=== PATIENT | male | born 1975 | race Caucasian/White ===

== ENCOUNTER 2018-05-09 09:15 | Emergency (ER) | payer OTHER ==
[~2018-05-09] VITALS: Ht 177.8 cm; Wt 81.6 kg
[2018-05-09] MEDS ORDERED: IV NORMAL SALINE 1000ML BAG 1,000 ML IV SCH (09:19)
--- NOTE | 2018-05-09 09:34 | PHYS DOC ---
Adult General HPI HPI Patient is a 43 year old male who presents with alcohol intoxication. Patient was brought in by EMS after patient was found outside of a sobriety house with intoxication. Patient does have a a card. Patient is alert and responds to pain in his name and follows some verbal direction from staff. Review of Systems Review of Systems Constitutional: Denies fever or chills [] Eyes: Denies change in visual acuity, redness, or eye pain [] HENT: Denies nasal congestion or sore throat [] Respiratory: Denies cough or shortness of breath [] Cardiovascular: No additional information not addressed in HPI [] GI: Denies abdominal pain, nausea, vomiting, bloody stools or diarrhea [] : Denies dysuria or hematuria [] Musculoskeletal: Denies back pain or joint pain [] Integument: Denies rash or skin lesions [] Neurologic: Denies headache, focal weakness or sensory changes. Alcohol Intoxication, AMS [] All other systems were reviewed and found to be within normal limits, except as documented in this note. Current Medications Current Medications Current Medications Medications (Trade) Dose Ordered Sig/Tamera Start Time Stop Time Status Last Admin Dose Admin Sodium Chloride 1,000 ml @ 1,000 mls/hr Q1H 05/09/18 09:19 05/09/18 10:18 DC 05/09/18 09:56 1,000 MLS/HR Allergies Allergies Allergies Coded Allergies Type Severity Reaction Last Updated Verified Unable to Assess 05/09/18 No Physical Exam Physical Exam Constitutional: Well developed, well nourished, no acute distress, non-toxic appearance. [] HENT: Normocephalic, atraumatic, bilateral external ears normal, oropharynx moist, no oral exudates, nose normal. [] Eyes: PERRLA, EOMI, conjunctiva normal, no discharge. [] Neck: Normal range of motion, no tenderness, supple, no stridor. [] Cardiovascular:Heart rate regular rhythm, no murmur [] Lungs & Thorax: Bilateral breath sounds clear to auscultation [] Abdomen: Bowel sounds normal, soft, no tenderness, no masses, no pulsatile masses. [] Skin: Warm, dry, no erythema, no rash. [] Back: No tenderness, no CVA tenderness. [] Extremities: No tenderness, no cyanosis, no clubbing, ROM intact, no edema. [] Neurologic: Alert and oriented X 1, normal motor function, normal sensory function, no focal deficits noted. [] Psychologic: AMS, mood normal. [] Current Patient Data Vital Signs Vital Signs Date Time Temp Pulse Resp B/P (MAP) Pulse Ox O2 Delivery O2 Flow Rate FiO2 05/09/18 11:18 84 20 124/79 (94) 94 Room Air 05/09/18 09:40 98.9 98.9 Lab Values Laboratory Tests Test 05/09/18 09:25 05/09/18 09:30 05/09/18 13:24 White Blood Count 5.6 x10^3/uL (4.0-11.0) Red Blood Count 5.27 x10^6/uL (4.30-5.70) Hemoglobin 16.0 g/dL (13.0-17.5) Hematocrit 46.5 % (39.0-53.0) Mean Corpuscular Volume 88 fL (79-100) Mean Corpuscular Hemoglobin 30 pg (25-35) Mean Corpuscular Hemoglobin Concent 34 g/dL (31-37) Red Cell Distribution Width 14.1 % (11.5-14.5) Platelet Count 232 x10^3/uL (140-400) Neutrophils (%) (Auto) 48 % (31-73) Lymphocytes (%) (Auto) 43 % (24-48) Monocytes (%) (Auto) 8 % (0-9) Eosinophils (%) (Auto) 1 % (0-3) Basophils (%) (Auto) 0 % (0-3) Neutrophils # (Auto) 2.7 x10^3uL (1.8-7.7) Lymphocytes # (Auto) 2.4 x10^3/uL (1.0-4.8) Monocytes # (Auto) 0.4 x10^3/uL (0.0-1.1) Eosinophils # (Auto) 0.1 x10^3/uL (0.0-0.7) Basophils # (Auto) 0.0 x10^3/uL (0.0-0.2) Sodium Level 141 mmol/L (136-145) Potassium Level 4.0 mmol/L (3.5-5.1) Chloride Level 107 mmol/L (98-107) Carbon Dioxide Level 28 mmol/L (21-32) Anion Gap 6 (6-14) Blood Urea Nitrogen 13 mg/dL (8-26) Creatinine 0.9 mg/dL (0.7-1.3) Estimated GFR (Cockcroft-Gault) 92.1 BUN/Creatinine Ratio 14 (6-20) Glucose Level 121 mg/dL (70-99) H Calcium Level 8.6 mg/dL (8.5-10.1) Magnesium Level 1.8 mg/dL (1.8-2.4) Total Bilirubin 0.2 mg/dL (0.2-1.0) Aspartate Amino Transferase (AST) 62 U/L (15-37) H Alanine Aminotransferase (ALT) 51 U/L (16-63) Alkaline Phosphatase 64 U/L (46-116) Troponin I Quantitative < 0.017 ng/mL (0.000-0.055) Total Protein 6.9 g/dL (6.4-8.2) Albumin 3.9 g/dL (3.4-5.0) Albumin/Globulin Ratio 1.3 (1.0-1.7) Lipase 244 U/L (73-393) Ethyl Alcohol Level 484 mg/dL (0-10) *H 342 mg/dL (0-10) H Urine Collection Type Unknown Urine Color Yellow Urine Clarity Clear Urine pH 6.0 Urine Specific [place] 1.015 Urine Protein Negative mg/dL (NEG-TRACE) Urine Glucose (UA) Negative mg/dL (NEG) Urine Ketones (Stick) Negative mg/dL (NEG) Urine Blood Negative (NEG) Urine Nitrite Negative (NEG) Urine Bilirubin Negative (NEG) Urine Urobilinogen Dipstick 0.2 mg/dL (0.2 mg/dL) Urine Leukocyte Esterase Negative (NEG) Urine RBC 1-2 /HPF (0-2) Urine WBC Occ /HPF (0-4) Urine Squamous Epithelial Cells Few /LPF Urine Bacteria 0 /HPF (0-FEW) Urine Mucus Slight /LPF Urine Opiates Screen Neg (NEG) Urine Methadone Screen Neg (NEG) Urine Barbiturates Neg (NEG) Urine Phencyclidine Screen Neg (NEG) Urine Amphetamine/Methamphetamine Neg (NEG) Urine Benzodiazepines Screen Neg (NEG) Urine Cocaine Screen Neg (NEG) Urine Cannabinoids Screen Neg (NEG) Urine Ethyl Alcohol Pos (NEG) Laboratory Tests 05/09/18 09:25 Laboratory Tests 05/09/18 09:25 EKG EKG Sinus Rhythm, Right Bundle Branch Block, No STEMI Interpretation Time: [address] Pelayo Radiology/Procedures Radiology/Procedures Chest Xray Impressions: [facility] [address] [place] [address] IMAGING REPORT Signed PATIENT: DOMINIQUE RANGEL ACCOUNT: [id number] : 1975 LOCATION: ER AGE: 43 SEX: M EXAM STATUS: PRE ER ORD. PHYSICIAN: ODELL DUNN APRN REASON: AMS, ETOH PROCEDURE: PORTABLE CHEST 1V EXAM: Chest, single view. HISTORY: Altered mental status. COMPARISON: None. FINDINGS: A frontal view of the chest is obtained. There is no infiltrate, pleural effusion or pneumothorax. The heart is normal in size. IMPRESSION: No acute pulmonary finding. Electronically signed by: Debora Blakely MD (05/09/2018 10:24 AM) [facility] DICTATED and SIGNED BY: DEBORA BLAKELY MD DATE: 05/09/18 1024 Course & Med Decision Making Course & Med Decision Making Patient is alert only to himself but is nonverbal. Patient arrived by EMS and was found sitting outside of a sobriety house since 0 last night. Patient is intoxicated and responds to his name, will open his eyes when asked, responds to pain by moaning and states his birthday is [birth year]. When asked where he is he mumbles 24. Patient is not answering questions. Patient has no trauma or deformities to his body. Patient is currently AO x1. Patient does not respond to pain. Patient does have a AA card. Patient does not seem to have any pain. Pupils are equal and reactive. Patient is in no respiratory distress and has not extremity edema. Blood ETOH level is 484. Patient's chest x-ray shows no acute findings. 1100: Patient is becoming more alert and answering yes or no questions. Patient states he is wanting to eat and drink. Patient is given a box lunch. 1200: Patient is asking to leave and keeps trying leave the ED. Patient is still very unsteady on his feet and states he has no one to come get him. Patient has not made any phone calls and will not give us anyone to call for him. Patient IV's are removed. Patient can no leave on his own because he is still very intoxicated which makes him a threat to self. 1245: Nursing staff can not find the patient and security see that the patient is outside in the outpatient parking lot. Security is calling the police to get patient. 1300: Patient found by security and brought back tot he room. 1400: Second alcohol level is 342. Patient is steady on his feet, AO x4, and called himself a Uber to take him back to the sobriety house. Dr Pelayo also evaluated patients orientation ans stated the patient was medically cleared to leave with a Uber. Patient is discharged. Zaheer Disclaimer Zaheer Disclaimer This electronic medical record was generated, in whole or in part, using a voice recognition dictation system. Departure Departure Impression: Primary Impression: Alcohol intoxication Disposition: 01 HOME, SELF-CARE Condition: STABLE Patient Instructions: Alcohol Intoxication, Alcohol Problems, Alcohol Withdrawal Additional Instructions: Follow up with your primary care to continue to receive help with Alcoholism. Problem Qualifiers Primary Impression: Alcohol intoxication Complication of substance-induced condition: uncomplicated Qualified Codes: F10.920 - Alcohol use, unspecified with intoxication, uncomplicated ODELL DUNN CHEMICAL LABORATORY TECHNICIAN May 09, 2018 09:34
[2018-05-09 09:36] LABS: BASO % 0 % (0-3); EOS # 0.1 x10^3/uL (0.0-0.7); EOS % 1 % (0-3); HEMATOCRIT 46.5 % (39.0-53.0); LYMPH # 2.4 x10^3/uL (1.0-4.8); LYMPH % 43 % (24-48); MEAN CORPUSCULAR HEMOGLOBIN 30 pg (25-35); MEAN CORPUSCULAR HGB CONC 34 g/dL (31-37); MEAN CORPUSCULAR VOLUME 88 fL (79-100); MONO # 0.4 x10^3/uL (0.0-1.1); MONO % 8 % (0-9); NEUT # 2.7 x10^3uL (1.8-7.7); NEUT % 48 % (31-73); PLATELET COUNT 232 x10^3/uL (140-400); RED BLOOD COUNT 5.27 x10^6/uL (4.30-5.70); RED CELL DISTRIBUTION WIDTH 14.1 % (11.5-14.5); WHITE BLOOD COUNT 5.6 x10^3/uL (4.0-11.0)
[2018-05-09 09:45] LABS: CALCIUM 8.6 mg/dL (8.5-10.1); CREATININE 0.9 mg/dL (0.7-1.3); GFR 92.1
[2018-05-09 09:50] LABS: BILIRUBIN,URINE NEGATIVE (NEG); CLARITY,URINE CLEAR; COLOR,URINE YELLOW; NITRITE,URINE NEGATIVE (NEG); PROTEIN,URINE NEGATIVE (NEG-TRACE); UROBILINOGEN,URINE 0.2 mg/dL (0.2 mg/dL)
--- NOTE | 2018-05-09 09:50 | EKG ---
[facility] [address] [place] [address] Test Date: 2018-05-09 Test Time: 09:23:15 Pat Name: DOMINIQUE RANGEL Department: Room: Gender: M Home Care Provider: : 1975 Requested By: ODELL DUNN Order Number: [id number] Reading MD: Mello Hadley MD Measurements Intervals [place] Rate: 91 P: 90 NC: 178 QRS: 68 QRSD: 90 T: 45 QT: 322 QTc: 402 Interpretive Statements SINUS RHYTHM Electronically Signed On 05-12-2018 9:07:58 CDT by Mello Hadley MD
[2018-05-09 09:51] LABS: ALBUMIN 3.9 g/dL (3.4-5.0); TOTAL PROTEIN 6.9 g/dL (6.4-8.2)
[2018-05-09 09:52] LABS: BARBITURATES NEG (NEG); BENZODIAZEPINES NEG (NEG); CANNABINOIDS NEG (NEG); COCAINE NEG (NEG); METHADONE NEG (NEG); OPIATES NEG (NEG); PHENCYCLIDINE NEG (NEG)
[2018-05-09 09:52] LABS: ALBUMIN/GLOBULIN RATIO 1.3 (1.0-1.7); MAGNESIUM 1.8 mg/dL (1.8-2.4); TOTAL BILIRUBIN 0.2 mg/dL (0.2-1.0)
[2018-05-09 09:53] LABS: AMPHETAMINE/METHAMPHETAMINE NEG (NEG)
[2018-05-09 10:06] LABS: BACTERIA,URINE 0 /HPF (0-FEW); SQUAMOUS EPITHELIAL CELL,UR FEW /LPF; WBC,URINE OCC /HPF (0-4)
--- NOTE | 2018-05-09 10:28 | RAD ---
EXAM: Chest, single view. HISTORY: Altered mental status. COMPARISON: None. FINDINGS: A frontal view of the chest is obtained. There is no infiltrate, pleural effusion or pneumothorax. The heart is normal in size. IMPRESSION: No acute pulmonary finding. Electronically signed by: Debora Bond MD (05/09/2018 10:24 AM) [facility]
[2018-05-09 11:18] VITALS: BP 124/79
== END 2018-05-09 14:21 | disposition home or self-care (01) ==
LOC: ER 09:15
DX: F10.129 Alcohol abuse with intoxication, unspecified (principal); R41.82 Altered mental status, unspecified
CPT/HCPCS: 36415; 71045; 80053; 80307; 81001; 83690; 83735; 84484; 85025; 93005; 96360; 99285; G0480; J7030; G0479

== ENCOUNTER 2018-05-09 15:55 | Emergency (ER) | payer OTHER ==
[~2018-05-09] VITALS: Ht 180.3 cm; Wt 81.6 kg
[2018-05-09] MEDS ORDERED: IV NORMAL SALINE 1000ML BAG 1,000 ML IV ONE (16:15)
--- NOTE | 2018-05-09 16:20 | PHYS DOC ---
Past Medical History Past Medical History: Unknown Past Surgical History: Other Additional Past Surgical Histo: UNKNOWN Alcohol Use: Heavy Drug Use: None Adult General Chief Complaint Chief Complaint: ALCOHOL INTOXICATION HPI HPI Patient is a 43 year old male who presents with the second time to the ED today with alcohol intoxication. Patient brought in by EMS after being found intoxicated on the side of the rode drinking mouth wash. Patient is again alert to himself and pain only. Patients neurological status is the same as he was when he came in the first time this morning. Review of Systems Review of Systems Constitutional: Denies fever or chills [] Eyes: Denies change in visual acuity, redness, or eye pain [] HENT: Denies nasal congestion or sore throat [] Respiratory: Denies cough or shortness of breath [] Cardiovascular: No additional information not addressed in HPI [] GI: Denies abdominal pain, nausea, vomiting, bloody stools or diarrhea [] : Denies dysuria or hematuria [] Musculoskeletal: Denies back pain or joint pain [] Integument: Denies rash or skin lesions [] Neurologic: Intoxicated and AO to self and pain. Denies headache, focal weakness or sensory changes [] Endocrine: Denies polyuria or polydipsia [] All other systems were reviewed and found to be within normal limits, except as documented in this note. Current Medications Current Medications Current Medications Medications (Trade) Dose Ordered Sig/Tamera Start Time Stop Time Status Last Admin Dose Admin Sodium Chloride 1,000 ml @ 1,000 mls/hr 1X ONCE 05/09/18 16:15 05/09/18 17:14 DC 05/09/18 16:42 1,000 MLS/HR Allergies Allergies Allergies Coded Allergies Type Severity Reaction Last Updated Verified Unable to Assess 05/09/18 No Physical Exam Physical Exam Constitutional: Well developed, well nourished, no acute distress, non-toxic appearance. [] HENT: Normocephalic, atraumatic, bilateral external ears normal, oropharynx moist, no oral exudates, nose normal. [] Eyes: PERRLA, EOMI, conjunctiva normal, no discharge. [] Neck: Normal range of motion, no tenderness, supple, no stridor. [] Cardiovascular:Heart rate regular rhythm, no murmur [] Lungs & Thorax: Bilateral breath sounds clear to auscultation [] Abdomen: Bowel sounds normal, soft, no tenderness, no masses, no pulsatile masses. [] Skin: Warm, dry, no erythema, no rash. [] Back: No tenderness, no CVA tenderness. [] Extremities: No tenderness, no cyanosis, no clubbing, ROM intact, no edema. [] Neurologic: Alert and oriented X 1, normal motor function, normal sensory function, no focal deficits noted. [] Psychologic: Affect alcohol intoxication, judgement not normal, mood normal. [] Current Patient Data Vital Signs Vital Signs Date Time Temp Pulse Resp B/P (MAP) Pulse Ox O2 Delivery O2 Flow Rate FiO2 05/09/18 18:00 90 16 134/74 (94) 97 05/09/18 16:03 98.6 Room Air 98.6 Lab Values Laboratory Tests Test 05/09/18 16:22 05/09/18 17:00 Sodium Level 141 mmol/L (136-145) Potassium Level 3.6 mmol/L (3.5-5.1) Chloride Level 106 mmol/L (98-107) Carbon Dioxide Level 27 mmol/L (21-32) Anion Gap 8 (6-14) Blood Urea Nitrogen 10 mg/dL (8-26) Creatinine 0.9 mg/dL (0.7-1.3) Estimated GFR (Cockcroft-Gault) 92.1 BUN/Creatinine Ratio 11 (6-20) Glucose Level 158 mg/dL (70-99) H Calcium Level 8.1 mg/dL (8.5-10.1) L Total Bilirubin 0.1 mg/dL (0.2-1.0) L Aspartate Amino Transferase (AST) 40 U/L (15-37) H Alanine Aminotransferase (ALT) 48 U/L (16-63) Alkaline Phosphatase 61 U/L (46-116) Total Protein 6.6 g/dL (6.4-8.2) Albumin 3.7 g/dL (3.4-5.0) Albumin/Globulin Ratio 1.3 (1.0-1.7) Ethyl Alcohol Level 442 mg/dL (0-10) *H Urine Opiates Screen Neg (NEG) Urine Methadone Screen Neg (NEG) Urine Barbiturates Neg (NEG) Urine Phencyclidine Screen Neg (NEG) Urine Amphetamine/Methamphetamine Neg (NEG) Urine Benzodiazepines Screen Neg (NEG) Urine Cocaine Screen Neg (NEG) Urine Cannabinoids Screen Neg (NEG) Urine Ethyl Alcohol Pos (NEG) Laboratory Tests 05/09/18 16:22 EKG EKG Sinus Rhythm, Incomplete Right Bundle Branch Block, No STEMI[] Interpretation Time: [address] Pelayo Radiology/Procedures Radiology/Procedures [] Course & Med Decision Making Course & Med Decision Making Patient is alert to self and pain. Poison control is being called because patient drank mouth wash. Patient will have lab work, urine drug screen, alcohol level, and EKG completed. Patient will also receive a bolus of normal saline. Poison control is called and they states to treat this patient just like a regular alcohol intoxication patient. I have handed this patient off to Juanita ROSAS. A food tray was ordered for the patient and upon delivering the trachea was room it was discovered that the patient had eloped from the emergency department. Gita: I did not see this patient in the ED on this visit. I was avialable at all times as needed for consultation. apparently the patient eloped but did not technically leave ama. [] Dragon Disclaimer Dragon Disclaimer This electronic medical record was generated, in whole or in part, using a voice recognition dictation system. Departure Departure Impression: Primary Impression: Alcohol intoxication Disposition: 07 AGAINST MEDICAL ADVICE Condition: STABLE Referrals: UNKNOWN PCP NAME (PCP) ODELL DUNN APRN May 09, 2018 16:20 JUANITA BAHENA APRN May 09, 2018 18:58 PATRICIA PELAYO MD May 10, 2018 06:50
[2018-05-09 16:54] LABS: CALCIUM 8.1 mg/dL (8.5-10.1); CREATININE 0.9 mg/dL (0.7-1.3); GFR 92.1; POTASSIUM 3.6 mmol/L (3.5-5.1)
[2018-05-09 16:57] LABS: ALBUMIN 3.7 g/dL (3.4-5.0); ALBUMIN/GLOBULIN RATIO 1.3 (1.0-1.7); TOTAL BILIRUBIN 0.1 mg/dL (0.2-1.0); TOTAL PROTEIN 6.6 g/dL (6.4-8.2)
[2018-05-09 17:19] LABS: BARBITURATES NEG (NEG); BENZODIAZEPINES NEG (NEG); CANNABINOIDS NEG (NEG); COCAINE NEG (NEG); METHADONE NEG (NEG); OPIATES NEG (NEG); PHENCYCLIDINE NEG (NEG)
[2018-05-09 17:23] LABS: AMPHETAMINE/METHAMPHETAMINE NEG (NEG)
[2018-05-09 18:00] VITALS: BP 134/74
--- NOTE | 2018-05-10 10:32 | EKG ---
[facility] [address] [place] [address] Test Date: 2018-05-09 Test Time: 16:38:33 Pat Name: DOMINIQUE RANGEL Department: Room: Gender: M High Heel Builder: CHERYL : 1975 Requested By: ODELL DUNN Order Number: [id number] Reading MD: Mello Hadley MD Measurements Intervals [place] Rate: 94 P: 90 VT: 180 QRS: 75 QRSD: 86 T: 54 QT: 318 QTc: 402 Interpretive Statements SINUS RHYTHM Electronically Signed On 05-12-2018 10:39:14 CDT by Mello Hadley MD
== END 2018-05-09 18:50 | disposition left against medical advice (07) ==
LOC: ER 15:55
DX: F10.129 Alcohol abuse with intoxication, unspecified (principal); Y90.8 Blood alcohol level of 240 mg/100 ml or more
CPT/HCPCS: 36415; 80053; 80307; 93005; 99285; G0480; J7030; G0479

== ENCOUNTER 2018-05-15 09:45 | Emergency (ER) | payer OTHER ==
[~2018-05-15] VITALS: Ht 175.3 cm; Wt 81.6 kg
[2018-05-15 10:49] LABS: BASO % 0 % (0-3); EOS % 0 % (0-3); HEMATOCRIT 50.7 % (39.0-53.0); HEMOGLOBIN 17.6 g/dL (13.0-17.5); LYMPH # 1.4 x10^3/uL (1.0-4.8); LYMPH % 22 % (24-48); MEAN CORPUSCULAR HEMOGLOBIN 30 pg (25-35); MEAN CORPUSCULAR HGB CONC 35 g/dL (31-37); MEAN CORPUSCULAR VOLUME 88 fL (79-100); MONO # 0.4 x10^3/uL (0.0-1.1); MONO % 7 % (0-9); NEUT # 4.6 x10^3uL (1.8-7.7); NEUT % 71 % (31-73); PLATELET COUNT 206 x10^3/uL (140-400); RED BLOOD COUNT 5.79 x10^6/uL (4.30-5.70); RED CELL DISTRIBUTION WIDTH 14.4 % (11.5-14.5); WHITE BLOOD COUNT 6.5 x10^3/uL (4.0-11.0)
--- NOTE | 2018-05-15 10:52 | PHYS DOC ---
Past Medical History Past Medical History: Alcoholism, Unknown, Other Additional Past Medical Histor: POOR HISTORIAN Past Surgical History: Other Additional Past Surgical Histo: UNKNOWN Additional Information: CHEW TOBACCO Alcohol Use: Heavy Drug Use: None Adult General Chief Complaint Chief Complaint: ALCOHOL INTOXICATION HPI HPI S Patient is a 43 year old male brought in by his alcohol intoxication he wanted be checked out because he drinks 30 beers before arrival he says he has been "pooping blood" ever since he started drinking again 4 days ago when he got kicked out of a [facility] Review of Systems Review of Systems LEE BY INTOX Current Medications Current Medications Current Medications Medications (Trade) Dose Ordered Sig/Tamera Start Time Stop Time Status Last Admin Dose Admin Lorazepam (Ativan) 2 mg 1X ONCE 05/15/18 11:45 05/15/18 11:46 DC 05/15/18 11:37 2 MG Allergies Allergies Allergies Coded Allergies Type Severity Reaction Last Updated Verified Unable to Assess 05/09/18 No Physical Exam Physical Exam Constitutional: Well developed, well nourished, MILD distress, non-toxic appearance. [] SMELS LIKE ETOH HENT: Normocephalic, atraumatic, bilateral external ears normal, oropharynx moist, no oral exudates, nose normal. [] Eyes: PERRLA, EOMI, conjunctiva normal, no discharge. [] Neck: Normal range of motion, no tenderness, supple, no stridor. [] Cardiovascular:Heart rate regular rhythm, no murmur [] Lungs & Thorax: Bilateral breath sounds clear to auscultation [] Abdomen: Bowel sounds normal, softs, no masses, no pulsatile masses. [] RECTAL BROWN STOOL NO HEMORRHOID MILD NONSPECIFIC TTP Skin: Warm, dry, no erythema, no rash. [] Back: No tenderness, no CVA tenderness. [] Extremities: No tenderness, no cyanosis, no clubbing, ROM intact, no edema. [] Neurologic: Alert and oriented X 3, normal motor function, normal sensory function, no focal deficits noted. [] SLURRED SPEECH C/W ETOH Psychologic: Affect normal, judgement normal, mood normal. [] Current Patient Data Vital Signs Vital Signs Date Time Temp Pulse Resp B/P (MAP) Pulse Ox O2 Delivery O2 Flow Rate FiO2 05/15/18 12:00 106 20 Room Air 05/15/18 11:45 149/92 (111) 05/15/18 09:45 98.4 97 98.4 Lab Values Laboratory Tests Test 05/15/18 10:40 White Blood Count 6.5 x10^3/uL (4.0-11.0) Red Blood Count 5.79 x10^6/uL (4.30-5.70) H Hemoglobin 17.6 g/dL (13.0-17.5) H Hematocrit 50.7 % (39.0-53.0) Mean Corpuscular Volume 88 fL (79-100) Mean Corpuscular Hemoglobin 30 pg (25-35) Mean Corpuscular Hemoglobin Concent 35 g/dL (31-37) Red Cell Distribution Width 14.4 % (11.5-14.5) Platelet Count 206 x10^3/uL (140-400) Neutrophils (%) (Auto) 71 % (31-73) Lymphocytes (%) (Auto) 22 % (24-48) L Monocytes (%) (Auto) 7 % (0-9) Eosinophils (%) (Auto) 0 % (0-3) Basophils (%) (Auto) 0 % (0-3) Neutrophils # (Auto) 4.6 x10^3uL (1.8-7.7) Lymphocytes # (Auto) 1.4 x10^3/uL (1.0-4.8) Monocytes # (Auto) 0.4 x10^3/uL (0.0-1.1) Eosinophils # (Auto) 0.0 x10^3/uL (0.0-0.7) Basophils # (Auto) 0.0 x10^3/uL (0.0-0.2) Stool Occult Blood Negative (NEG) Sodium Level 138 mmol/L (136-145) Potassium Level 4.1 mmol/L (3.5-5.1) Chloride Level 101 mmol/L (98-107) Carbon Dioxide Level 29 mmol/L (21-32) Anion Gap 8 (6-14) Blood Urea Nitrogen 4 mg/dL (8-26) L Creatinine 0.8 mg/dL (0.7-1.3) Estimated GFR (Cockcroft-Gault) 105.5 BUN/Creatinine Ratio 5 (6-20) L Glucose Level 105 mg/dL (70-99) H Calcium Level 9.0 mg/dL (8.5-10.1) Total Bilirubin 0.3 mg/dL (0.2-1.0) Aspartate Amino Transferase (AST) 73 U/L (15-37) H Alanine Aminotransferase (ALT) 88 U/L (16-63) H Alkaline Phosphatase 81 U/L (46-116) Total Protein 7.6 g/dL (6.4-8.2) Albumin 4.1 g/dL (3.4-5.0) Albumin/Globulin Ratio 1.2 (1.0-1.7) Lipase 196 U/L (73-393) Urine Opiates Screen Neg (NEG) Urine Methadone Screen Neg (NEG) Urine Barbiturates Neg (NEG) Urine Phencyclidine Screen Neg (NEG) Urine Amphetamine/Methamphetamine Neg (NEG) Urine Benzodiazepines Screen Neg (NEG) Urine Cocaine Screen Neg (NEG) Urine Cannabinoids Screen Neg (NEG) Ethyl Alcohol Level 367 mg/dL (0-10) H Urine Ethyl Alcohol Pos (NEG) Laboratory Tests 05/15/18 10:40 Laboratory Tests 05/15/18 10:40 EKG EKG [] Radiology/Procedures Radiology/Procedures [] Course & Med Decision Making Course & Med Decision Making Pertinent Labs and Imaging studies reviewed. (See chart for details) []On reevaluation patient is much more clinically sober he is ambulatory with a steady gait he is slurred speech has resolved. I have seen him here in this emergency room recently and he is clinically actually quite functional at a very high alcohol level. He does have a history of withdrawal. He was seen by Serafin the emergency room who recommended that if patient wanted detox he needed to be admitted for medical clearance first due to history of withdrawal. I offered this to the patient he declined. He said he had to leave. He wanted to order a LYFT to go back to his home town of [place] And in fact the patient did sign out AGAINST MEDICAL ADVICE he was aware of the risks of leaving which did include up to and including alcohol withdrawal seizures which could even be fatal. I feel that even though he does have an elevated alcohol level he is competent to make this decision. He has capacity to know the risks of his decisions. In fact of his alcohol or any lower suspect he would begin to have alcohol withdrawal. Patient was observed by our staff to be getting into the actual car that he called. As far as the rectal bleeding the is no evidence of this rectal exam showed brown stool that was heme-negative and the hemoglobin was actually concentrated Dragon Disclaimer Dragon Disclaimer This electronic medical record was generated, in whole or in part, using a voice recognition dictation system. Departure Departure Impression: Primary Impression: Alcohol intoxication Disposition: 07 AGAINST MEDICAL ADVICE Referrals: UNKNOWN PCP NAME (PCP) PATRICIA PIEDRA MD May 15, 2018 10:52
[2018-05-15 10:58] LABS: BARBITURATES NEG (NEG); BENZODIAZEPINES NEG (NEG); CANNABINOIDS NEG (NEG); COCAINE NEG (NEG); METHADONE NEG (NEG); OPIATES NEG (NEG); PHENCYCLIDINE NEG (NEG)
[2018-05-15 11:00] LABS: AMPHETAMINE/METHAMPHETAMINE NEG (NEG)
[2018-05-15 11:01] LABS: FECAL OB PT NEGATIVE (NEG)
[2018-05-15 11:02] LABS: CREATININE 0.8 mg/dL (0.7-1.3); GFR 105.5; POTASSIUM 4.1 mmol/L (3.5-5.1)
[2018-05-15 11:08] LABS: ALBUMIN 4.1 g/dL (3.4-5.0); ALBUMIN/GLOBULIN RATIO 1.2 (1.0-1.7); TOTAL BILIRUBIN 0.3 mg/dL (0.2-1.0); TOTAL PROTEIN 7.6 g/dL (6.4-8.2)
[2018-05-15 11:45] VITALS: BP 149/92
[2018-05-15] MEDS ORDERED: LORazepam 1 MG TABLET PO ONE (11:45)
== END 2018-05-15 12:12 | disposition left against medical advice (07) ==
LOC: ER 09:45
DX: F10.129 Alcohol abuse with intoxication, unspecified (principal); F17.200 Nicotine dependence, unspecified, uncomplicated
CPT/HCPCS: 36415; 80053; 80307; 82274; 83690; 85025; 99284; G0480; G0479